=== PATIENT | female | born 1940 | race Caucasian/White ===

== ENCOUNTER → 2017-05-28 | Outpatient (CLI) | payer MEDICARE | END | disposition home or self-care (01) | LOC: CFH 12:23 | PROVIDERS: ATTEND Family Medicine | DX: N64.89 Other specified disorders of breast (principal) | CPT/HCPCS: 77065 ==

== ENCOUNTER → 2017-06-01 | Outpatient (CLI) | payer MEDICARE ==
[~2017-06-01] MED LIST: LIDOCAINE 1%, 20ML ONE; LIDOCAINE 1%-EPI 1:100K, 20ML ONE; SODIUM BICARBONATE 4.2%, 5ML ONE
== END | disposition home or self-care (01) ==
LOC: CFH 09:26
PROVIDERS: ATTEND Family Medicine
DX: N63.11 Unspecified lump in the right breast, upper outer quadrant (principal)
CPT/HCPCS: 19083; 19084; 77065; 88305; J3490

== ENCOUNTER → 2017-06-26 | Outpatient (CLI) | payer MEDICARE | END | disposition home or self-care (01) | LOC: CFH 13:18 | PROVIDERS: ATTEND Surgery | DX: K44.9 Diaphragmatic hernia without obstruction or gangrene (principal); I51.7 Cardiomegaly; C50.811 Malignant neoplasm of overlapping sites of right female breast | CPT/HCPCS: 82565; C8908 ==

== ENCOUNTER → 2017-07-11 | Outpatient (CLI) | payer MEDICARE ==
[~2017-07-11] MED LIST changes: +CALC1CAP8 PO; +CRANBERRY PO; +D-MA50PO PO; +ESTRACE PO; +EYE VITAMIN PO; +LACT1CAP61 PO; -LIDOCAINE 1%, 20ML ONE; -LIDOCAINE 1%-EPI 1:100K, 20ML ONE; +OMEP20TA62 PO; +PRIM50TA PO; +PROP20TA PO; +SIMV20TA3 PO; -SODIUM BICARBONATE 4.2%, 5ML ONE; +VITAMIN C PO
== END | disposition home or self-care (01) ==
LOC: STAR 13:32
PROVIDERS: ATTEND Surgery
DX: Z01.818 Encounter for other preprocedural examination (principal)
CPT/HCPCS: 93005

== ENCOUNTER 2017-07-16 09:57 | Day surgery (SDC) | payer MEDICARE ==
[~2017-07-16] VITALS: Ht 165.1 cm; Wt 82.4 kg
[~2017-07-16 09:57] MED LIST changes: +BUPIVACAINE/PF 0.25% ONE; +EPINEPHRINE 1 MG/ML, 1ML ONE
[2017-07-16] MEDS ORDERED: LACTATED RINGERS 1,000 ML IV SCH (11:29)
[2017-07-16] MEDS ORDERED: ONDANSETRON ODT 8 MG PO ONE (11:30)
[2017-07-16] MEDS ORDERED: SCOPOLAMINE PATCH, 1.5MG PATCH.TD72 TD ONE (11:30)
[2017-07-16] MEDS ORDERED: ACETAMINOPHEN 500 MG TABLET PO ONE (11:30)
[2017-07-16] MEDS ORDERED: OxyconTIN ER 10 MG TAB.ER PO ONE (12:00)
[2017-07-16] MEDS ORDERED: ISOSULFAN BLUE 10 MG/ML, 5ML IV ONE (12:46)
[2017-07-16] MEDS ORDERED: FENTANYL PF 100 MCG/2ML ONE (12:55)
[2017-07-16] MEDS ORDERED: EPHEDRINE 50 MG/ML, 1ML ONE (13:01)
[2017-07-16] MEDS ORDERED: DEXAMETHASONE 4 MG/ML, 1ML ONE (13:01)
[2017-07-16] MEDS ORDERED: PROPOFOL 10 MG/ML, 20ML ONE (13:01)
[2017-07-16] MEDS ORDERED: CEFAZOLIN 1,000 MG ONE (13:01)
[2017-07-16] MEDS ORDERED: SODIUM BICARBONATE 4.2%, 5ML ONE (13:23)
[2017-07-16] MEDS ORDERED: LIDOCAINE 1%, 20ML ONE (13:23)
[2017-07-16] MEDS ORDERED: LABETALOL 5MG/ML, 20ML IV PRN (14:00)
[2017-07-16] MEDS ORDERED: ALBUTEROL SULFATE 2.5 MG/3 ML NPPB PRN (14:00)
[2017-07-16] MEDS ORDERED: PROMETHAZINE 25 MG/ML, 1ML IV PRN (14:00)
[2017-07-16] MEDS ORDERED: ONDANSETRON ODT 8 MG PO PRN (14:00)
[2017-07-16] MEDS ORDERED: MIDAZOLAM 1 MG/ML, 2ML IV PRN (14:00)
[2017-07-16] MEDS ORDERED: hydrALAzine 20 MG/ML, 1ML IV PRN (14:00)
[2017-07-16] MEDS ORDERED: FENTANYL PF 100 MCG/2ML IV PRN (14:00)
[2017-07-16] MEDS ORDERED: PROMETHAZINE 12.5 MG SUPP PR PRN (14:00)
[2017-07-16] MEDS ORDERED: MEPERIDINE/PF 25MG/0.5ML IVPush PRN (14:00)
[2017-07-16] MEDS: MORPHINE SULFATE 4 MG/ML, 1ML IVPush PRN ×2 (14:40→14:50)
[2017-07-16] MEDS ORDERED: morphine SULFATE 10 MG/ML, 1ML ONE (14:41)
[2017-07-16] MEDS ORDERED: HYDROcodone/APAP 5/325 TABLET ONE (16:35)
[2017-07-16] MEDS ORDERED: HYDROcodone/APAP 5/325 TABLET PO PRN (17:00)
== END 2017-07-16 16:40 ==
LOC: CFH 09:57 → EDSTATUS 14:30 → OUT 16:40
PROVIDERS: ATTEND Surgery
DX: C50.911 Malignant neoplasm of unspecified site of right female breast (principal); E78.5 Hyperlipidemia, unspecified; K21.9 Gastro-esophageal reflux disease without esophagitis; E78.00 Pure hypercholesterolemia, unspecified; Z87.39 Personal history of other diseases of the musculoskeletal system and connective tissue; Z87.440 Personal history of urinary (tract) infections; Z98.890 Other specified postprocedural states; Z96.651 Presence of right artificial knee joint; Z98.51 Tubal ligation status; Z90.710 Acquired absence of both cervix and uterus
CPT/HCPCS: 19281; 19301; 38525; 38792; 88305; 88307; A9541; C1729; J0171; J0690; J1100; J2704; J3010; J3490; J7120; Q0162

== ENCOUNTER → 2017-08-08 | Outpatient (CLI) | payer MEDICARE ==
[~2017-08-08] MED LIST changes: -BUPIVACAINE/PF 0.25% ONE; -EPINEPHRINE 1 MG/ML, 1ML ONE
== END | disposition home or self-care (01) ==
LOC: ROC 12:29
PROVIDERS: ATTEND Radiology Radiation Oncology
DX: C50.411 Malignant neoplasm of upper-outer quadrant of right female breast (principal); E78.5 Hyperlipidemia, unspecified; K21.9 Gastro-esophageal reflux disease without esophagitis
CPT/HCPCS: 99214; G0463

== ENCOUNTER → 2017-08-08 | Outpatient (CLI) | payer MEDICARE | LOC: ROC 08:15 | PROVIDERS: ATTEND Radiology Radiation Oncology | DX: Z02.9 Encounter for administrative examinations, unspecified (principal) ==

== ENCOUNTER → 2017-10-26 | Outpatient (CLI) | payer MEDICARE ==
[~2017-10-26] MED LIST changes: +ANAS1TAB PO
== END | disposition home or self-care (01) ==
LOC: ROC 08:16
PROVIDERS: ATTEND Radiology Radiation Oncology
DX: C50.411 Malignant neoplasm of upper-outer quadrant of right female breast (principal); Z88.2 Allergy status to sulfonamides
CPT/HCPCS: 99213; G0463

== ENCOUNTER → 2019-09-23 | Outpatient (CLI) | payer MEDICARE ==
[~2019-09-23] MED LIST changes: +SIMV20TA19 PO; -SIMV20TA3 PO
== END | disposition home or self-care (01) ==
LOC: CFH 09:52
PROVIDERS: ATTEND Family Medicine
DX: C50.411 Malignant neoplasm of upper-outer quadrant of right female breast (principal); M81.8 Other osteoporosis without current pathological fracture; M85.89 Other specified disorders of bone density and structure, multiple sites
CPT/HCPCS: 77080